=== PATIENT | male | born 1985 | race Caucasian/White ===

== ENCOUNTER 2020-02-01 08:01 | Day surgery (SDC) | payer OTHER, SELFPAY ==
[~2020-02-01] VITALS: Ht 180.3 cm; Wt 90.7 kg
[2020-02-01] MEDS ORDERED: diphenhydrAMINE 50 MG/ML VIAL ONE (11:04)
[2020-02-01] MEDS ORDERED: MIDAZOLAM 5 MG/5 ML VIAL ONE (11:04)
[2020-02-01] MEDS ORDERED: fentaNYL citrate 0.05 MG/ML VIAL ONE (11:04)
[2020-02-01] MEDS ORDERED: LIDOCAINE 2% 100 MG/5 ML UJET TP ONE (11:05)
[2020-02-01] MEDS ORDERED: fentaNYL citrate 0.05 MG/ML VIAL IVP ONE (13:35)
[2020-02-01] MEDS ORDERED: MIDAZOLAM 2 MG/2 ML VIAL IVP ONE (13:35)
== END 2020-02-01 13:05 | disposition home or self-care (01) ==
LOC: MDS 08:01 → MMU 08:37 → MDS 13:05
PROVIDERS: ATTEND Internal Medicine Gastroenterology
DX: K74.60 Unspecified cirrhosis of liver (principal); R18.8 Other ascites; K29.50 Unspecified chronic gastritis without bleeding; F10.11 Alcohol abuse, in remission; I85.00 Esophageal varices without bleeding; Z20.828 Contact with and (suspected) exposure to other viral communicable diseases; Z87.891 Personal history of nicotine dependence
CPT/HCPCS: 43239; 43244; 88305; 88312; 88313; J2250; J3010; U0003; J1200

== ENCOUNTER 2020-02-02 07:50 | Emergency (ER) | payer OTHER, SELFPAY ==
[~2020-02-02] VITALS: Ht 180.3 cm; Wt 90.7 kg
[2020-02-02 07:56] VITALS: BP 131/79
--- NOTE | 2020-02-02 08:04 | NUR ---
Dr. Saldivar is evaluating the patient at bedside.
--- NOTE | 2020-02-02 08:04 | NUR ---
Patient ambulated to bed 4. RN evaluating patient at bedside.
--- NOTE | 2020-02-02 08:06 | NUR ---
PATIENT PRESENTS TO ED WITH CO STERNAL CHEST PAIN SINCE YESTERDAY . PT STATES HE HAD EGD PROCEDURE DONE HERE AT [facility] YESTERDAY AT 11A AND HAD BEEN HAVING PAIN SINCE . DENIES N/V/D; SKIN IS PINK/WARM/DRY; AAOX4 WITH EVEN AND STEADY GAIT; LUNGS CLEAR BL; HR EVEN AND REGULAR; PT DENIES ANY FEVER, CP, SOB, OR COUGH AT THIS TIME; PATIENT STATES PAIN OF 6/10 AT THIS TIME; VSS; PATIENT POSITIONED FOR COMFORT; HOB ELEVATED; BEDRAILS UP X2; BED DOWN. ER MD MADE AWARE OF PT STATUS.
[2020-02-02] MEDS ORDERED: KETOROLAC 15 MG/ML VIAL IVP ONE (08:10)
[2020-02-02 08:29] LABS: BASOPHILS # (AUTO) 0.1 K/uL (0.00-0.22); BASOPHILS % (AUTO) 0.9 % (0.0-2.0); EOSINOPHILS # (AUTO) 0.4 K/uL (0-0.4); EOSINOPHILS % (AUTO) 5.2 % (0.0-4.0); HEMATOCRIT 38.6 % (36-52); HEMOGLOBIN 13.5 g/dL (12.0-18.0); LYMPHOCYTES # (AUTO) 1.5 K/uL (2.0-11.5); LYMPHOCYTES % (AUTO) 19.2 % (20.5-51.1); MEAN CORPUSCULAR HEMOGLOBIN 34 pg (27-31); MEAN CORPUSCULAR HGB CONC 35 g/dL (33-37); MONOCYTES # (AUTO) 0.7 K/uL (0.8-1.0); MONOCYTES % (AUTO) 8.9 % (1.7-9.3); NEUTROPHILS # (AUTO) 5.2 K/uL (1.8-7.7); NEUTROPHILS % (AUTO) 65.8 % (42.2-75.2); PLATELET COUNT (AUTO) 70 K/uL (140-450); RED BLOOD CELL COUNT(AUTO) 3.94 MIL/uL (4.20-6.10); RED CELL DISTRIBUTION WIDTH 13.7 % (11.6-13.7)
[2020-02-02 08:42] LABS: ALBUMIN 2.9 g/dL (3.4-5.0); ANION GAP 11.4 (8-16); CARBON DIOXIDE 25.6 mmol/L (21-32); CREATININE 1.2 mg/dL (0.6-1.3); TOTAL BILIRUBIN 1.8 mg/dL (0.0-1.0)
--- NOTE | 2020-02-02 09:08 | NUR ---
PT RESTING IN BED QUIETLY. NO DISTRESS NOTED. VSS, R/R EQUAL, AND UNLABORED. CONNECTED TO BED SIDE MONITOR. POSITIONED FOR COMFORT, SIDE RAIL X1, BED IN LOW, WILL CONTINUE TO MONITOR.
--- NOTE | 2020-02-02 09:19 | NUR ---
Dr. Saldivar is reevaluating the patient at bedside.
[2020-02-02 09:47] VITALS: BP 128/80
== END 2020-02-02 09:48 | disposition home or self-care (01) ==
LOC: MED 07:50
DX: R07.9 Chest pain, unspecified (principal); K21.9 Gastro-esophageal reflux disease without esophagitis; E80.6 Other disorders of bilirubin metabolism; Z87.898 Personal history of other specified conditions
CPT/HCPCS: 36415; 71046; 80053; 83690; 84484; 85025; 93005; 96374; 99285; J1885

== ENCOUNTER 2020-03-07 06:27 | Day surgery (SDC) | payer OTHER, SELFPAY ==
[~2020-03-07] VITALS: Ht 180.3 cm; Wt 93.0 kg
[2020-03-07] MEDS ORDERED: fentaNYL citrate 0.05 MG/ML VIAL ONE (07:56)
[2020-03-07] MEDS ORDERED: diphenhydrAMINE 50 MG/ML VIAL ONE (07:56)
[2020-03-07] MEDS ORDERED: MIDAZOLAM 5 MG/5 ML VIAL ONE (07:56)
[2020-03-07] MEDS ORDERED: LIDOCAINE VISCOUS 2% 20 ML UDC ONE (07:56)
[2020-03-07] MEDS ORDERED: diphenhydrAMINE 50 MG/ML VIAL IVP ONE (09:20)
[2020-03-07] MEDS ORDERED: MIDAZOLAM 2 MG/2 ML VIAL IVP ONE (09:20)
[2020-03-07] MEDS ORDERED: fentaNYL citrate 0.05 MG/ML VIAL IVP ONE (09:20)
== END 2020-03-07 09:20 | disposition home or self-care (01) ==
LOC: MDS 06:27 → MMU 06:28 → MDS 09:20
PROVIDERS: ATTEND Internal Medicine Gastroenterology
DX: K74.60 Unspecified cirrhosis of liver (principal); I85.10 Secondary esophageal varices without bleeding; R18.8 Other ascites; F10.11 Alcohol abuse, in remission; Z87.891 Personal history of nicotine dependence; Z79.899 Other long term (current) drug therapy; Z20.828 Contact with and (suspected) exposure to other viral communicable diseases
CPT/HCPCS: 43244; J1200; J2250; J3010; U0003

== ENCOUNTER 2020-04-04 07:17 | Day surgery (SDC) | payer OTHER, SELFPAY ==
[~2020-04-04] VITALS: Ht 177.8 cm; Wt 94.3 kg
[2020-04-04] MEDS ORDERED: diphenhydrAMINE 50 MG/ML VIAL ONE (08:22)
[2020-04-04] MEDS ORDERED: fentaNYL citrate 0.05 MG/ML VIAL ONE (08:23)
[2020-04-04] MEDS ORDERED: MIDAZOLAM 2 MG/2 ML VIAL ONE (08:23)
[2020-04-04] MEDS ORDERED: MIDAZOLAM 2 MG/2 ML VIAL IVP ONE (09:20)
[2020-04-04] MEDS ORDERED: diphenhydrAMINE 50 MG/ML VIAL IVP ONE (09:20)
[2020-04-04] MEDS ORDERED: fentaNYL citrate 0.05 MG/ML VIAL IVP ONE (09:20)
== END 2020-04-04 09:55 | disposition home or self-care (01) ==
LOC: MFCC 07:17 → MDS 07:17
PROVIDERS: ATTEND Internal Medicine Gastroenterology
DX: I85.00 Esophageal varices without bleeding (principal); K74.60 Unspecified cirrhosis of liver; R18.8 Other ascites; F10.11 Alcohol abuse, in remission; K31.9 Disease of stomach and duodenum, unspecified; Z79.899 Other long term (current) drug therapy; Z20.828 Contact with and (suspected) exposure to other viral communicable diseases
CPT/HCPCS: 43244; J1200; J2250; J3010; U0003

== ENCOUNTER 2020-06-19 12:42 | Emergency (ER) | payer OTHER, SELFPAY ==
[~2020-06-19] VITALS: Ht 180.3 cm; Wt 97.5 kg
[2020-06-19 12:56] VITALS: BP 137/86
[2020-06-19] MEDS ORDERED: methocarbamoL 500 MG TAB PO STA (13:00)
[2020-06-19 13:20] LABS: BASOPHILS % (AUTO) 0.9 % (0.0-2.0); EOSINOPHILS # (AUTO) 0.2 K/uL (0-0.4); EOSINOPHILS % (AUTO) 3.1 % (0.0-4.0); HEMATOCRIT 38.3 % (36-52); HEMOGLOBIN 13.4 g/dL (12.0-18.0); LYMPHOCYTES # (AUTO) 0.6 K/uL (2.0-11.5); LYMPHOCYTES % (AUTO) 11.6 % (20.5-51.1); MEAN CORPUSCULAR HEMOGLOBIN 34 pg (27-31); MEAN CORPUSCULAR HGB CONC 35 g/dL (33-37); MEAN CORPUSCULAR VOLUME 95.9 fL (80-94); MONOCYTES # (AUTO) 0.4 K/uL (0.8-1.0); MONOCYTES % (AUTO) 8.4 % (1.7-9.3); PLATELET COUNT (AUTO) 52 K/uL (140-450); RED BLOOD CELL COUNT(AUTO) 3.99 MIL/uL (4.20-6.10); RED CELL DISTRIBUTION WIDTH 13.2 % (11.6-13.7); WHITE BLOOD COUNT (AUTO) 5.3 K/uL (4.8-10.8)
[2020-06-19] MEDS ORDERED: METH750T5 PO (13:20)
[2020-06-19 13:29] LABS: ANION GAP 11.6 (8-16); CARBON DIOXIDE 24.9 mmol/L (21-32); CREATININE 1.1 mg/dL (0.6-1.3); POTASSIUM 3.5 mmol/L (3.5-5.1)
[2020-06-19] MEDS ORDERED: ACETAMINOPHEN 650 MG/20.3 ML UDC PO STA (13:38)
[2020-06-19 14:25] VITALS: BP 112/67
== END 2020-06-19 14:24 | disposition home or self-care (01) ==
LOC: MED 12:42
DX: K74.60 Unspecified cirrhosis of liver (principal); R07.89 Other chest pain; M25.512 Pain in left shoulder
CPT/HCPCS: 36415; 71045; 80048; 83880; 84484; 85025; 93005; 99285

== ENCOUNTER 2020-08-22 08:05 | Day surgery (SDC) | payer OTHER, SELFPAY ==
[~2020-08-22] VITALS: Ht 180.3 cm; Wt 94.3 kg
[~2020-08-22 08:05] MED LIST: METH750T5 PO
[2020-08-22] MEDS ORDERED: diphenhydrAMINE 50 MG/ML VIAL ONE (10:54)
[2020-08-22] MEDS ORDERED: MIDAZOLAM 2 MG/2 ML VIAL ONE (10:55)
[2020-08-22] MEDS ORDERED: fentaNYL citrate 0.05 MG/ML VIAL ONE (10:55)
[2020-08-22] MEDS ORDERED: fentaNYL citrate 0.05 MG/ML VIAL IVP ONE (12:50)
[2020-08-22] MEDS ORDERED: MIDAZOLAM 2 MG/2 ML VIAL IVP ONE (12:50)
== END 2020-08-22 12:34 | disposition home or self-care (01) ==
LOC: MDS 08:05 → MMU 08:07 → MDS 12:34
PROVIDERS: ATTEND Internal Medicine Gastroenterology
DX: K74.60 Unspecified cirrhosis of liver (principal); I85.10 Secondary esophageal varices without bleeding; I10 Essential (primary) hypertension; Z79.899 Other long term (current) drug therapy
CPT/HCPCS: 43244; J2250; J3010; J1200

== ENCOUNTER 2020-11-07 08:10 | Day surgery (SDC) | payer OTHER ==
[~2020-11-07] VITALS: Ht 177.8 cm; Wt 97.5 kg
[2020-11-07] MEDS ORDERED: diphenhydrAMINE 50 MG/ML VIAL ONE (09:32)
[2020-11-07] MEDS ORDERED: fentaNYL citrate 0.05 MG/ML VIAL ONE ×2 (09:32→09:59)
[2020-11-07] MEDS ORDERED: MIDAZOLAM 5 MG/5 ML VIAL ONE (09:32)
[2020-11-07] MEDS ORDERED: MIDAZOLAM 2 MG/2 ML VIAL IVP ONE (10:30)
[2020-11-07] MEDS ORDERED: fentaNYL citrate 0.05 MG/ML VIAL IVP ONE (10:30)
== END 2020-11-07 11:20 | disposition home or self-care (01) ==
LOC: MDS 08:10 → MMU 08:11 → MDS 11:20
PROVIDERS: ATTEND Internal Medicine Gastroenterology
DX: K74.60 Unspecified cirrhosis of liver (principal); I85.10 Secondary esophageal varices without bleeding; K29.50 Unspecified chronic gastritis without bleeding; Z87.891 Personal history of nicotine dependence; Z79.899 Other long term (current) drug therapy
CPT/HCPCS: 43239; 43244; 88305; 88312; 88313; 88342; J2250; J3010; J1200

== ENCOUNTER 2020-12-12 09:00 | Day surgery (SDC) | payer OTHER ==
[~2020-12-12] VITALS: Ht 177.8 cm; Wt 97.5 kg
[2020-12-12] MEDS ORDERED: diphenhydrAMINE 50 MG/ML VIAL ONE (10:31)
[2020-12-12] MEDS ORDERED: fentaNYL citrate 0.05 MG/ML VIAL ONE (10:31)
[2020-12-12] MEDS ORDERED: MIDAZOLAM 5 MG/5 ML VIAL ONE (10:31)
[2020-12-12] MEDS ORDERED: MIDAZOLAM 2 MG/2 ML VIAL IVP ONE (10:50)
[2020-12-12] MEDS ORDERED: fentaNYL citrate 0.05 MG/ML VIAL IVP ONE (10:50)
== END 2020-12-12 11:20 | disposition home or self-care (01) ==
LOC: MDS 09:00 → MMU 09:00 → MDS 11:20
PROVIDERS: ATTEND Internal Medicine Gastroenterology
DX: K74.60 Unspecified cirrhosis of liver (principal); K29.50 Unspecified chronic gastritis without bleeding; I85.00 Esophageal varices without bleeding; R18.8 Other ascites; Z79.899 Other long term (current) drug therapy
CPT/HCPCS: 43239; J2250; J3010; J1200

== ENCOUNTER 2021-08-07 07:41 | Day surgery (SDC) | payer OTHER ==
[~2021-08-07] VITALS: Ht 177.8 cm; Wt 106.6 kg
[2021-08-07] MEDS ORDERED: diphenhydrAMINE 50 MG/ML VIAL ONE (09:30)
[2021-08-07] MEDS ORDERED: MIDAZOLAM 5 MG/5 ML VIAL ONE (09:31)
[2021-08-07] MEDS ORDERED: fentaNYL citrate 0.05 MG/ML VIAL ONE (09:31)
[2021-08-07] MEDS: MIDAZOLAM 2 MG/2 ML VIAL IVP ONE (09:48)
[2021-08-07] MEDS: fentaNYL citrate 0.05 MG/ML VIAL IVP ONE (09:49)
[2021-08-07] MEDS: diphenhydrAMINE 50 MG/ML VIAL IVP ONE (09:50)
== END 2021-08-07 11:02 | disposition home or self-care (01) ==
LOC: MMU 07:41 → MDS 07:41
PROVIDERS: ATTEND Internal Medicine Gastroenterology
DX: K74.60 Unspecified cirrhosis of liver (principal); R18.8 Other ascites; I85.10 Secondary esophageal varices without bleeding; Z79.899 Other long term (current) drug therapy; Z20.822 Contact with and (suspected) exposure to COVID-19
CPT/HCPCS: 43235; 87426; J1200; J2250; J3010

== ENCOUNTER 2022-04-30 06:54 | Day surgery (SDC) | payer OTHER ==
[~2022-04-30] VITALS: Ht 177.8 cm; Wt 122.5 kg
[2022-04-30] MEDS ORDERED: MIDAZOLAM 5 MG/5 ML VIAL ONE (07:44)
[2022-04-30] MEDS ORDERED: fentaNYL citrate 0.05 MG/ML VIAL ONE (07:44)
[2022-04-30] MEDS ORDERED: diphenhydrAMINE 50 MG/ML VIAL ONE (07:44)
[2022-04-30] MEDS ORDERED: diphenhydrAMINE 50 MG/ML VIAL IVP ONE (08:20)
[2022-04-30] MEDS ORDERED: fentaNYL citrate 0.05 MG/ML VIAL IVP ONE (08:20)
[2022-04-30] MEDS ORDERED: MIDAZOLAM 5 MG/5 ML VIAL IV ONE (08:20)
== END 2022-04-30 09:10 | disposition home or self-care (01) ==
LOC: MMU 06:54 → MOR 06:54
PROVIDERS: ATTEND Internal Medicine Gastroenterology
DX: K70.11 Alcoholic hepatitis with ascites (principal); K70.31 Alcoholic cirrhosis of liver with ascites; K29.50 Unspecified chronic gastritis without bleeding; K31.89 Other diseases of stomach and duodenum; I85.10 Secondary esophageal varices without bleeding; Z20.822 Contact with and (suspected) exposure to COVID-19; Z87.891 Personal history of nicotine dependence
CPT/HCPCS: 43239; 87426; 88305; 88312; 88313; 88342; J1200; J2250; J3010

== ENCOUNTER 2022-05-20 16:51 | Emergency (ER) | payer OTHER ==
[~2022-05-20] VITALS: Ht 177.8 cm; Wt 128.9 kg
[2022-05-20 17:25] VITALS: BP 115/79
[2022-05-20] MEDS ORDERED: IBUP-1842 PO (18:26)
--- NOTE | 2022-05-20 18:42 | NUR ---
Patient discharged with v/s stable. Written and verbal after care instructions ABOUT WRIST PAIN given and explained. Patient alert, oriented and verbalized understanding of instructions. Ambulatory with steady gait. All questions addressed prior to discharge. ID band removed. Patient advised to follow up with PMD. Rx of MOTRIN given. Patient educated on indication of medication including possible reaction and side effects. Opportunity to ask questions provided and answered. D/C BY JANNIE FLORES
== END 2022-05-20 18:42 | disposition home or self-care (01) ==
LOC: MED 16:51
DX: M25.532 Pain in left wrist (principal); W23.1XXA Caught, crushed, jammed, or pinched between stationary objects, initial encounter; Y93.89 Activity, other specified; Y92.008 Other place in unspecified non-institutional (private) residence as the place of occurrence of the external cause; Y99.8 Other external cause status
CPT/HCPCS: 73110; 99283